=== PATIENT | female | born 1960 | race Caucasian/White ===

== ENCOUNTER 2017-04-26 14:05 | Emergency (ER) | payer BC ==
[~2017-04-26] VITALS: Ht 170.2 cm; Wt 122.0 kg
[2017-04-26] MEDS ORDERED: CELEBREX200 M1 PO (15:22)
[2017-04-26] MEDS ORDERED: HYDROXYCHLOR200 M1 PO (15:24)
[2017-04-26] MEDS ORDERED: LISINOPRIL40 MG PO (15:26)
[2017-04-26] MEDS ORDERED: HYDROCHLOROT12.5 M1 PO (15:28)
[2017-04-26] MEDS ORDERED: PROBIOTI3 PO (15:30)
[2017-04-26] MEDS ORDERED: VITAMIN D32000 UNIT PO (15:31)
[2017-04-26] MEDS ORDERED: VITAMIN B-12500 MCG PO (15:33)
[2017-04-26 16:22] LABS: HEMATOCRIT 44.7 % (37.0-47.0); IMMATURE GRANULOCYTES 0.3 % (0.0-1.0); MEAN CELL VOLUME 92.5 fL CALC (80.0-100.0); MEAN CORPUSCULAR HGB 31.1 pG CALC (26.0-32.0); MEAN CORPUSCULAR HGB CONC 33.6 g/L CALC (32.0-36.0); NEUT# 5.93 thou/uL (2.00-7.15); RED BLOOD COUNT 4.83 mill/uL (4.20-5.60); RED CELL DISTRI WIDTH 13.7 % (11.5-15.5)
[2017-04-26 16:35] LABS: INFLUENZA A NONE DETECTED (NONE DETECT); INFLUENZA B NONE DETECTED (NONE DETECT)
[2017-04-26 16:36] LABS: ALKALINE PHOSPHATASE 86 u/l (38-126); ANION GAP 13 (6-22 (CALC)); BILIRUBIN, TOTAL 0.5 mg/dL (0.0-1.4); BUN 15 mg/dL (7-17); BUN/CREATININE RATIO 23 (12-20 (CALC)); CALCIUM 9.6 mg/dL (8.4-10.2); CARBON DIOXIDE 24 mmol/l (22-30); CHLORIDE 108 mmol/l (95-108); CREATININE 0.6 mg/dL (0.5-1.0); GFR > 60 ML/MIN (>=60 (CALC)); GFR FOR AFR.AMER. > 60 ML/MIN (>=60 (CALC)); GLUCOSE 98 mg/dL (65-105); POTASSIUM 4.3 mmol/l (3.5-5.1); SGOT/AST 24 u/l (14-36); SGPT/ALT 16 u/l (9-52); SODIUM 140 mmol/l (137-146); TOTAL PROTEIN 6.7 g/dL (6.3-8.2)
[2017-04-26] MEDS ORDERED: MEDDOSEPAK PO (17:14)
[2017-04-26] MEDS ORDERED: LORTAB 1010 MG PO (17:14)
[2017-04-26 17:25] VITALS: BP 139/81
== END 2017-04-26 17:25 | disposition home or self-care (01) | DRG 547 ==
LOC: ED 14:05
PROVIDERS: Emergency Medicine
DX: M32.9 Systemic lupus erythematosus, unspecified (principal); R53.83 Other fatigue; R53.1 Weakness; F17.210 Nicotine dependence, cigarettes, uncomplicated; I10 Essential (primary) hypertension

== ENCOUNTER 2017-05-26 00:24 | Emergency (ER) | payer BC ==
[~2017-05-26] VITALS: Ht 170.2 cm; Wt 122.8 kg
[~2017-05-26 00:24] MED LIST: CELEBREX200 M1 PO; HYDROCHLOROT12.5 M1 PO; HYDROXYCHLOR200 M1 PO; LISINOPRIL40 MG PO; LORTAB 1010 MG PO; MEDDOSEPAK PO; PROBIOTI3 PO; VITAMIN B-12500 MCG PO; VITAMIN D32000 UNIT PO
[2017-05-26] MEDS ORDERED: LORTAB 1010 MG PO (01:52)
[2017-05-26] MEDS ORDERED: FLEXERIL PO (01:52)
[2017-05-26 02:06] VITALS: BP 119/61
== END 2017-05-26 02:06 | disposition home or self-care (01) | DRG 563 ==
LOC: ED 00:24
DX: S39.012A Strain of muscle, fascia and tendon of lower back, initial encounter (principal); J43.9 Emphysema, unspecified; I10 Essential (primary) hypertension; M47.817 Spondylosis without myelopathy or radiculopathy, lumbosacral region; F17.210 Nicotine dependence, cigarettes, uncomplicated; X58.XXXA Exposure to other specified factors, initial encounter